=== PATIENT | male | born 1995 | race Caucasian/White ===

== ENCOUNTER 2018-02-03 16:28 | Emergency (ER) | payer BC ==
[2018-02-03 18:04] VITALS: BP 147/75
--- NOTE | 2018-02-03 18:39 | ED ---
Skin Complaint - HPI Summary HPI Summary: pt is concerned he has lice. his girlfriend thinks she might have it. they are both in college in different cities. they spent the weekend together. she called him stating she might have lice. he came in for evaluation. he has not seen any lice on his hair. he is not itching. - History of Current Complaint Chief Complaint: UCSkin Stated Complaint: EXPOSURE TO LICE Hx Obtained From: Patient Onset/Duration: Started Days Ago - 1 Pain Intensity: 0 Aggravating Symptom(s): Nothing Alleviating Symptom(s): Nothing Associated Signs & Symptoms: Negative - Allergy/Home Medications Allergies/Adverse Reactions: Allergies Allergy/AdvReac Type Severity Reaction Status Date / Time Penicillins Allergy Unknown Hives Verified 02/03/18 17:58 Home Medications: Home Medications NK [No Home Medications Reported] 02/03/18 [History Confirmed 02/03/18] PMH/Surg Hx/FS Hx/Imm Hx Previously Healthy: Yes Endocrine/Hematology History: Denies: Hx Anticoagulant Therapy Cardiovascular History: Denies: Hx Aneurysm Respiratory History: Denies: Hx Asthma GI History: Denies: Hx Cirrhosis History: Denies: Hx Acute Renal Failure Musculoskeletal History: Denies: Hx Arthritis Infectious Disease History: No Infectious Disease History: Denies: Traveled Outside the [place] in Last 30 Days - Social History Alcohol Use: Weekly Substance Use Type: Reports: None Smoking Status (MU): Never Smoked Tobacco Review of Systems Constitutional: Negative Eyes: Negative ENT: Negative Cardiovascular: Negative Respiratory: Negative Gastrointestinal: Negative Genitourinary: Negative Musculoskeletal: Negative Skin: Negative Neurological: Negative Psychological: Normal All Other Systems Reviewed And Are Negative: No Physical Exam Triage Information Reviewed: Yes Vital Signs On Initial Exam: Initial Vitals Temp Pulse Resp BP Pulse Ox 97.3 F 62 17 147/75 100 02/03/18 17:59 02/03/18 17:59 02/03/18 17:59 02/03/18 17:59 02/03/18 17:59 Vital Signs Reviewed: Yes Appearance: Positive: Well-Appearing, No Pain Distress, Well-Nourished Skin: Positive: Warm, Dry, Other - no rashes, lice noted to scalp or spencer Head/Face: Positive: Normal Head/Face Inspection Eyes: Positive: Normal, EOMI, RAUL ENT: Positive: Normal ENT inspection, Hearing grossly normal, Pharynx normal Neck: Positive: Supple, Nontender Respiratory/Lung Sounds: Positive: Clear to Auscultation, Breath Sounds Present Cardiovascular: Positive: Normal, RRR Abdomen Description: Positive: Nontender, Soft Bowel Sounds: Positive: Present Musculoskeletal: Positive: Normal, Strength/ROM Intact Neurological: Positive: Normal, Sensory/Motor Intact, CN Intact II-III Psychiatric: Positive: Normal AVPU Assessment: Alert Diagnostics - Vital Signs Vital Signs Temp Pulse Resp BP Pulse Ox 02/03/18 17:59 97.3 F 62 17 147/75 100 - Laboratory Lab Statement: Any lab studies that have been ordered have been reviewed, and results considered in the medical decision making process. Course/Dx - Course Course Of Treatment: I looked thoroughly all throughout pt's scalp and spencer. i see no evidence of lice currently. I encouraged him to cut his hair short and his spencer if his girlfriend has a confirmed case of lice. I also encouraged him to use the sprays that you can buy over the counter for preventative lice tx. - Differential Diagnoses - Skin Complaint Differential Diagnoses: Abscess, Cellulitis, Contact Dermatitis, Other - Diagnoses Provider Diagnoses: Normal exam Discharge - Sign-Out/Discharge Documenting (check all that apply): Patient Departure All imaging exams completed and their final reports reviewed: No Studies - Discharge Plan Condition: Stable Disposition: HOME Patient Education Materials: Normal Exam (ED) Referrals: No Primary Care Phys,[facility]OPCP [Primary Care Provider] - [facility] [Provider Group] Additional Instructions: follow up with your primary care physician. If you do not have one, f/u with the [facility] physician. I have also given you a referral to a pcp. use the over the counter sprays to prevent lice. return if any symptoms concerning for lice. - Billing Disposition and Condition Condition: STABLE Disposition: Home
== END 2018-02-03 18:49 | disposition home or self-care (01) ==
LOC: UCCORT 16:28
DX: Z03.89 Encounter for observation for other suspected diseases and conditions ruled out (principal); Z88.0 Allergy status to penicillin
CPT/HCPCS: 99201; G0463